=== PATIENT | male | born 1985 | race Caucasian/White ===

== ENCOUNTER → 2023-06-04 | Outpatient (CLI) | payer OTHER ==
--- NOTE | 2023-06-05 13:54 | MR ---
EXAMINATION TYPE: MR knee RT wo con DATE OF EXAM: 06/04/2023 COMPARISON: None HISTORY: Knee pain TECHNIQUE: Multiplanar, multisequence imaging of the right knee is performed without IV contrast. FINDINGS: There is no bone contusion or fracture. There is a moderate joint effusion. There is marked pes anserinus bursitis. There is a grade 1 strain of the medial meniscus. There is a marked complex tear of the posterior and body of the medial meniscus with partial extrusion. The lateral meniscus is intact. There is no evidence of cruciate ligament injury. IMPRESSION: 1. Marked complex tear of the medial meniscus with grade 1 strain of the medial collateral ligament. 2. Marked pes anserinus bursitis. 3. Moderate joint effusion.
== END | disposition home or self-care (01) ==
LOC: RADMRIMAIN 06:34
PROVIDERS: ATTEND Orthopaedic Surgery
DX: S83.231A Complex tear of medial meniscus, current injury, right knee, initial encounter (principal); S83.411A Sprain of medial collateral ligament of right knee, initial encounter; M70.51 Other bursitis of knee, right knee; M25.461 Effusion, right knee; M23.8X1 Other internal derangements of right knee; M23.306 Other meniscus derangements, unspecified meniscus, right knee; M67.461 Ganglion, right knee; X58.XXXA Exposure to other specified factors, initial encounter